=== PATIENT | female | born 1990 | race Caucasian/White ===

== ENCOUNTER 2017-01-01 12:54 | Emergency (ER) | payer SELFPAY ==
[~2017-01-01] VITALS: Ht 157.5 cm; Wt 84.0 kg
[2017-01-01 13:08] VITALS: BP 123/83
[2017-01-01] MEDS ORDERED: TRAZ100T15 PO (13:27)
== END 2017-01-01 14:42 | disposition home or self-care (01) ==
LOC: ED 14:39
DX: J00 Acute nasopharyngitis [common cold] (principal); J02.9 Acute pharyngitis, unspecified; Z87.891 Personal history of nicotine dependence
CPT/HCPCS: 71020; 87081; 87880; 99285